=== PATIENT | male | born 1935 | race Caucasian/White ===

== ENCOUNTER → 2016-09-14 | Outpatient (CLI) | payer MEDICARE, OTHER | END | disposition home or self-care (01) | LOC: GMAB 11:01 | PROVIDERS: ATTEND Family Medicine | DX: I10 Essential (primary) hypertension (principal) ==

== ENCOUNTER → 2019-02-19 | Outpatient (CLI) | payer MEDICARE | LOC: GMAE 10:34 | PROVIDERS: ATTEND Family Medicine | DX: I10 Essential (primary) hypertension (principal) ==

== ENCOUNTER 2019-03-05 05:23 | Day surgery (SDC) | payer MEDICARE ==
[2019-03-05] MEDS ORDERED: LACTATED RINGERS 1,000 ML ONE (07:04)
[2019-03-05] MEDS: LACTATED RINGERS 1,000 ML IVS ONE (09:35)
[2019-03-05] MEDS ORDERED: LIDOCAINE 1% 10 ML VIAL INJ ONE (10:00)
[2019-03-05] MEDS ORDERED: PROPOFOL 200 MG/20 ML VIAL IV ONE (10:00)
[2019-03-05] MEDS ORDERED: LEVALBUTEROL NEBS 1.25 MG/3 ML VIAL NEB ONE ×2 (10:19→11:41)
--- NOTE | 2019-03-05 12:02 | OP ---
DATE OF PROCEDURE: 03/05/19 PREOPERATIVE DIAGNOSIS: 1. History of polyps. It has been over 12 years or so. POSTOPERATIVE DIAGNOSIS: 1. Colonic polyps. 2. Diverticulosis. PROCEDURE: 1. Colonoscopy. SURGEON: Ray Cueto MD ANESTHESIA: General. PROCEDURE: General anesthesia was induced in comfortable left lateral position. It was difficult to get to the sigmoid. We identified a polyp at about 3 cm. It was taken with a snare before we proceeded. We were able to finally get through and proceeded on to the cecum. There was an approximately 10 mm polyp in the cecum. We attempted to get through it and it did just not want to get through completely. I do not know that it looked too thick, but it was in the cecum. There were thin klein, so we did get a good, solar sales representative portion of it and took photos. Upon withdrawal, we identified another large polyp near the hepatic flexure. It was probably 12 to 13 mm at least. This was on a stalk and able to removed completely. Another 30 cm polyp was removed with a snare. It was about 8 mm. There were 3 additional polyps about 10 cm in the rectum varying between 4 and 7 mm that were excised with the snare. The one at 40 cm was taken with forceps biopsy additionally and cauterized at the base for minor ooze. Overall, he tolerated the procedure well. There were a number of polyps, so we will check pathology and he will followup in the office. #[id number] [facility]
[2019-03-05] MEDS: ONDANSETRON INJ 4 MG/2 ML VIAL ONE (12:20)
[2019-03-05 13:38] VITALS: BP 152/73; TEMP 98.6; O2SAT 99
== END 2019-03-05 13:10 | disposition home or self-care (01) ==
LOC: AMB 05:23
PROVIDERS: ATTEND Surgery
DX: Z12.11 Encounter for screening for malignant neoplasm of colon (principal); D12.0 Benign neoplasm of cecum; D12.3 Benign neoplasm of transverse colon; K63.5 Polyp of colon; K57.30 Diverticulosis of large intestine without perforation or abscess without bleeding; I10 Essential (primary) hypertension; Z88.2 Allergy status to sulfonamides; Z86.010 Personal history of colon polyps
CPT/HCPCS: 00812; 45380; 45385; 88305; 94640; J2405; J3490; J7120; J7614

== ENCOUNTER 2019-06-08 18:41 | Emergency (ER) | payer MEDICARE, OTHER ==
[2019-06-08] MEDS: ASPIRIN TABLET 325 MG TAB PO ONE (18:59)
[2019-06-08] MEDS: SODIUM CHLORIDE 0.9% (FLUSH) 10 ML SYG IV PRN (19:00)
--- NOTE | 2019-06-08 19:25 | CT ---
EXAM DESCRIPTION: Head CLINICAL HISTORY: 83 years Male right leg weakness r/o stroke. COMPARISON: None TECHNIQUE: Images were obtained in axial, sagittal, and coronal planes. This exam was performed according to our departmental dose-optimization program which includes use of Automated Exposure Control, adjustment of the mA and/or kV according to patient size and/or use of iterative reconstruction technique. FINDINGS: Ventricular system is enlarged. Marked prominence of the cortical sulci. Marked cerebral volume loss. Moderate periventricular decreased attenuation consistent with more remote microvascular ischemic change. No abnormal areas of increased attenuation seen. No extra-axial fluid collections noted. Marked mucosal thickening left maxillary antrum. Symmetric aeration mastoid air cells bilaterally. No evidence for skull fracture. IMPRESSION: No acute intracranial abnormality. No evidence for hemorrhage, mass lesion, or large acute infarction. Marked cerebral volume loss. Marked more remote microvascular ischemic change. Electronically signed by: May Das MD 06/08/2019 7:23 PM FILLER SPREADER
[2019-06-08] MEDS ORDERED: ALTEPLASE 100 MG ONE (19:39)
--- NOTE | 2019-06-08 19:55 | RAD ---
EXAM DESCRIPTION: XR Chest,1 View CLINICAL HISTORY: right leg weakness TECHNIQUE: Single frontal view of the chest is submitted. COMPARISON: None available for comparison FINDINGS: Heart: The cardiothoracic silhouette is within normal limits. Lungs: Patchy bilateral perihilar and basilar opacities. Mediastinum: Thoracic aortic atherosclerosis. Pleura: No appreciable effusion. No pneumothorax. Bones: Multilevel spondylosis. No acute fracture. Upper abdomen: Partially visualized abdominal aortic vascular stent. IMPRESSION: Patchy bilateral perihilar and basilar opacities (atelectasis and/or infiltrate). Electronically signed by: Bety Downey MD 06/08/2019 7:53 PM RETORT FORKER
[2019-06-08] MEDS: ALTEPLASE IVS ONE (20:03)
--- NOTE | 2019-06-08 20:05 | ED.PDOC ---
History of Present Illness - General Chief Complaint: Neuro Symptoms/Deficits Stated Complaint: R lower extremity weakness Time Seen by Provider: 06/08/19 18:41 Source: patient, RN notes reviewed, Vital Signs reviewed, family - and daughters Exam Limitations: no limitations - History of Present Illness Initial Comments: Patient is an 83-year-old white male who noted acute onset of right lower extremity weakness and numbness. This came on acutely approximately 1 to 1-1/4 hours prior to arrival. Patient denies any trauma. Nothing seems to make the numbness better or worse. Patient denies any confusion, expressive aphasia, receptive aphasia, headache or blurry vision. Timing/Duration: 1 hour - At approximately 1830 hrs. Severity: moderate Improving Factors: nothing Worsening Factors: nothing Associated Symptoms: weakness Allergies/Adverse Reactions: Allergies Sulfa Antibiotics Allergy (Mild, Verified 03/05/19 08:28) Rash Home Medications: Ambulatory Orders Amlodipine Besylate 10 mg PO DAILY 03/05/19 Atorvastatin Calcium 40 mg PO DAILY 03/05/19 Chlorthalidone 12.5 mg PO BEDTIME 03/05/19 Clopidogrel Bisulfate 75 mg PO DAILY 03/05/19 Folic Eleb-Stvkkqcsuc-Ddhxcbiw [Folbic 2.5-25-2 mg] 1 tab PO DAILY 03/05/19 Metoprolol Succinate [Metoprolol Succinate ER] 25 mg PO DAILY 03/05/19 Misc Natural Products [Saw [place] Plus] 1 cap PO DAILY 03/05/19 Ramipril 10 mg PO BID 03/05/19 Review of Systems - Review of Systems Constitutional: States: see HPI, weakness - Right lower extremity. Denies: chills, fever, malaise EENTM: States: no symptoms reported Respiratory: States: no symptoms reported Cardiology: States: no symptoms reported Gastrointestinal/Abdominal: States: no symptoms reported Genitourinary: States: no symptoms reported Musculoskeletal: States: no symptoms reported Skin: States: no symptoms reported Neurological: States: see HPI, paresthesia - Right lower extremity, weakness - Right lower extremity Endocrine: States: no symptoms reported Hematologic/Lymphatic: States: no symptoms reported All other Systems: Reviewed and Negative Past Medical History (General) - Patient Medical History Hx Stroke: No Hx Cardiac Disorders: Yes - [place]; cardiac stents; aneurysm Hx Congestive Heart Failure: No Hx Hypertension: Yes Hx Diabetes: No Hx MRSA: No Surgical History: other - Vaccination History Hx Influenza Vaccination: Yes - 2019 Hx Pneumococcal Vaccination: Yes - Social History Hx Tobacco Use: Yes Hx Alcohol Use: No Family Medical History - Family History Father Family History: No Known Living Status: Physical Exam - Physical Exam General Appearance: Alert, Comfortable, Well Developed, Well Groomed, Well Hydrated, Well Nourished Eye Exam: bilateral normal, bilateral abnormal EOM ENT Exam: normal ENT inspection, hearing grossly normal, pharynx normal Neck: non-tender, full range of motion, supple, normal inspection, trachea midline Respiratory: chest non-tender, lungs clear, normal breath sounds, no respiratory distress, no accessory muscle use Cardiovascular/Chest: normal peripheral pulses, regular rate, rhythm, no edema, no gallop, no JVD, no murmur Peripheral Pulses: radial,right: 2+, radial,left: 2+ Gastrointestinal/Abdominal: normal bowel sounds, non tender, soft, no organomegaly, no pulsatile mass Back Exam: normal inspection, no CVA tenderness, no vertebral tenderness Extremities Exam: non-tender, no evidence of injury, other - Right lower extremity with no effort against gravity.Mild paresthesias. Coordination/Gait: normal finger to nose, other - Patient is unable to stand to perform a Romberg procedure. He is unable to perform a vfzu-en-exip cerebellar exam due to extreme right lower extremity weakness. Motor/Sensory: sensory deficit - Right lower extremity, weak motor strength RLE DTR: 1+: Patellar, left, Patellar, right Skin Exam: normal color, warm/dry Progress - Progress Progress: Differential diagnosis: CVA, TIA, sciatica, lumbar fracture among others. 06/08/19 20:10 Patient with acute onset of right lower extremity weakness with an NIH stroke scale of 5. Discussed with family the risks and benefits of TPA. They voiced understanding and agreement with proceeding forward with treatment. They have been given informed consent and signed a consent form. Patient does not have any contraindications or relative contraindications for TPA. Plan on admission to [facility] in [place]. I have spoken with the family and the patient and they voiced understanding and agreement for transfer for further stroke care. I have discussed this with the stroke center and they have accepted the patient. The patient was accepted by Dr. Schuyler Dong M.D. #[id number] - Results/Orders Results/Orders: EXAM DESCRIPTION: Head CLINICAL HISTORY: 83 years Male right leg weakness r/o stroke. COMPARISON: None TECHNIQUE: Images were obtained in axial, sagittal, and coronal planes. This exam was performed according to our departmental dose-optimization program which includes use of Automated Exposure Control, adjustment of the mA and/or kV according to patient size and/or use of iterative reconstruction technique. FINDINGS: Ventricular system is enlarged. Marked prominence of the cortical sulci. Marked cerebral volume loss. Moderate periventricular decreased attenuation consistent with more remote microvascular ischemic change. No abnormal areas of increased attenuation seen. No extra-axial fluid collections noted. Marked mucosal thickening left maxillary antrum. Symmetric aeration mastoid air cells bilaterally. No evidence for skull fracture. IMPRESSION: No acute intracranial abnormality. No evidence for hemorrhage, mass lesion, or large acute infarction. Marked cerebral volume loss. Marked more remote microvascular ischemic change. Electronically signed by: May Das MD 06/08/2019 7:23 PM [employer]OUCH[employer]ENG[employer]VING 06/08/19 18:52 Sodium Chloride 0.9% (Flush) [Saline Flush Syringe] 10 ml IV PRN PRN 06/08/19 18:53 IV Care:Saline Lock per Protoc QSHIFT Telemetry .ONCE EKG Assessment ONCE 06/08/19 19:00 EKG STAT Laboratory Results - last 24 hr 06/08/19 06/08/19 06/08/19 18:56 18:56 18:56 WBC 11.6 H RBC 3.39 L Hgb 9.6 L Hct 29.6 L MCV 87.3 MCH 28.2 MCHC 32.3 L RDW 15.9 H Plt Count 231 MPV 7.6 Absolute Neuts (auto) 8.60 H Absolute Lymphs (auto) 1.60 Absolute Monos (auto) 1.20 H Absolute Eos (auto) 0.10 Absolute Basos (auto) 0.10 Neutrophils % 73.5 Lymphocytes % 14.1 L Monocytes % 10.6 H Eosinophils % 1.2 Basophils % 0.6 PT 12.1 H INR 1.22 H PTT (SP) 26.3 Sodium 136 Potassium 3.9 Chloride 103 Carbon Dioxide 23 Anion Gap 13.9 BUN 30 H Creatinine 1.37 H BUN/Creatinine Ratio 21.9 H POC Glucose Random Glucose 102 Serum Osmolality 278.3 Calcium 9.2 Total Bilirubin 0.5 AST 47 H ALT 40 Alkaline Phosphatase 190 H Creatine Kinase 65 CK-MB (CK-2) 2.2 CK-MB (CK-2) % Not Reportable Troponin I 0.03 Serum Total Protein 6.7 Albumin 3.3 Globulin 3.4 Albumin/Globulin Ratio 1.0 L 06/08/19 18:56 WBC RBC Hgb Hct MCV MCH MCHC RDW Plt Count MPV Absolute Neuts (auto) Absolute Lymphs (auto) Absolute Monos (auto) Absolute Eos (auto) Absolute Basos (auto) Neutrophils % Lymphocytes % Monocytes % Eosinophils % Basophils % PT INR PTT (SP) Sodium Potassium Chloride Carbon Dioxide Anion Gap BUN Creatinine BUN/Creatinine Ratio POC Glucose 97 Random Glucose Serum Osmolality Calcium Total Bilirubin AST ALT Alkaline Phosphatase Creatine Kinase CK-MB (CK-2) CK-MB (CK-2) % Troponin I Serum Total Protein Albumin Globulin Albumin/Globulin Ratio Stroke Information - Onset of Symptoms Symptoms of Stroke: Weakness of limb - Right lower extremity Stroke Onset of Symptoms Date: 06/08/19 Stroke Onset of Symptoms Time: 17:45 Departure - Departure Clinical Impression: Anemia, Renal insufficiency, mild CVA (cerebral vascular accident) Qualifiers: CVA mechanism: unspecified Qualified Code(s): I63.9 - Cerebral infarction, unspecified Time of Disposition: 20:16 Disposition: Transfer to Hospital Condition: Fair Referrals: CHADWICK VEGA MD [Primary Care Provider] - 1-2 Weeks Home Medications: Ambulatory Orders Amlodipine Besylate 10 mg PO DAILY 03/05/19 Atorvastatin Calcium 40 mg PO DAILY 03/05/19 Chlorthalidone 12.5 mg PO BEDTIME 03/05/19 Clopidogrel Bisulfate 75 mg PO DAILY 03/05/19 Folic Jqcv-Gjgqjbpmrr-Zrvgsntk [Folbic 2.5-25-2 mg] 1 tab PO DAILY 03/05/19 Metoprolol Succinate [Metoprolol Succinate ER] 25 mg PO DAILY 03/05/19 Misc Natural Products [Saw [place] Plus] 1 cap PO DAILY 03/05/19 Ramipril 10 mg PO BID 03/05/19 Critical Care Note - Critical Care Note Total Time (mins): 45 Transfer to Outside Facility - Transfer Information Decision to Transfer Date: 06/08/19 Decision to Transfer Time: 19:30 Reason for Transfer: specialized care not available Accepting Facility: [facility]
[2019-06-08 20:49] VITALS: BP 115/63; TEMP 97.7
[2019-06-09 02:15] VITALS: O2SAT 95
== END 2019-06-08 20:30 | disposition short-term general hospital (02) ==
LOC: ER 18:41
DX: I63.9 Cerebral infarction, unspecified (principal); D64.9 Anemia, unspecified; N28.9 Disorder of kidney and ureter, unspecified; R20.0 Anesthesia of skin; R29.898 Other symptoms and signs involving the musculoskeletal system; I25.2 Old myocardial infarction; I10 Essential (primary) hypertension; Z87.891 Personal history of nicotine dependence; Z95.5 Presence of coronary angioplasty implant and graft; Z79.899 Other long term (current) drug therapy; Z88.2 Allergy status to sulfonamides
CPT/HCPCS: 36415; 70450; 71045; 80053; 82550; 82553; 82948; 84484; 85025; 85610; 85730; 93005; J2997

== ENCOUNTER 2019-06-12 12:35 | Emergency (ER) | payer OTHER ==
[2019-06-12] MEDS ORDERED: SODIUM CHLORIDE 0.9% (FLUSH) 10 ML SYG IV PRN (12:40)
--- NOTE | 2019-06-12 13:01 | CT ---
EXAM DESCRIPTION: CT head without contrast CLINICAL HISTORY: Stroke. Weakness COMPARISON: 06/08/2019 TECHNIQUE: Noncontrast spiral CT of the brain. This exam was performed according to our departmental dose-optimization program, which includes automated exposure control, adjustment of the mA and/or kV according to patient size and/or use of iterative reconstruction technique FINDINGS: Interval development of large perisylvian right parietotemporal occipital infarct. Sulcal effacement and decreased density with the most significant involvement temporal occipital. This spans from the anterior temporal lobe to the mid occipital lobe. No intracranial hemorrhage or mass lesion. Extensive white matter disease related to chronic microvascular ischemia Cerebral and cerebellar volume loss with prominence of cortical sulci and ventricular system. Atherosclerotic vertebral and internal carotid arteries. Atherosclerotic calcification in the bilateral M1 middle cerebral arteries as well. No calvarial or skull base lesion or fracture. No paranasal sinus or mastoid fluid. 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 Swelling with effacement of the sulci Severe chronic microvascular ischemia Electronically signed by: Vickey Dunn MD 06/12/2019 1:00 PM [facility]
[2019-06-12] MEDS ORDERED: ASPIRIN (CHEWABLE) 81 MG TAB PO ONE (13:08)
[2019-06-12] MEDS ORDERED: CLOPIDOGREL 75 MG TAB PO ONE (13:09)
[2019-06-12] MEDS ORDERED: ALTEPLASE 100 MG ONE (13:14)
--- NOTE | 2019-06-12 13:15 | ED.PDOC ---
History of Present Illness - General Chief Complaint: Neuro Symptoms/Deficits Stated Complaint: Possible stroke Time Seen by Provider: 06/12/19 12:40 Source: family Exam Limitations: clinical condition - History of Present Illness Initial Comments: PT HAD A RECENT STROKE. HE WAS D/C'D YESTERDAY FROM [facility] FOR STROKE CARE. TODAY PT WAS RIDING IN CAR WITH SON. PER SON, PT'S HEAD FLEXED BACKWARD, EYES "ROLLED INTO THE BACK OF HIS HEAD", AND PT PROJECTILE VOMITED. BROUGHT TO ER. IN ER, PT WAS NOT COMMANDING AND HAD NO MUSCULAR STRENGTH. STAFF HAD TO COMPL ETELY TRANSFER FROM WHEELCHAIR TO BED. (INITIAL NIH STROKE SCORE 28). AFTER A SHORT WHILE IN ER BUT AFTER HEAD CT, HE WAS THEN FULLY LUCID WITH GCS 15 (NIH STROKE SCORE BACK TO NL), FULLY COMMANDING, AND MOTOR BACK TO 100%. ROS AND EXAM ARE BASED ON AFTER HIS FULL RECOVERY. Timing/Duration: 1 hour Severity: severe Improving Factors: nothing Worsening Factors: nothing Associated Symptoms: confusion, nausea/vomiting, weakness Allergies/Adverse Reactions: Allergies Sulfa Antibiotics Allergy (Mild, Verified 03/05/19 08:28) Rash Home Medications: Ambulatory Orders Amlodipine Besylate 10 mg PO DAILY 03/05/19 Atorvastatin Calcium 40 mg PO DAILY 03/05/19 Chlorthalidone 12.5 mg PO BEDTIME 03/05/19 Clopidogrel Bisulfate 75 mg PO DAILY 03/05/19 Folic Syks-Xhqpyrjxtt-Hnsmogju [Folbic 2.5-25-2 mg] 1 tab PO DAILY 03/05/19 Metoprolol Succinate [Metoprolol Succinate ER] 25 mg PO DAILY 03/05/19 Misc Natural Products [Saw [place] Plus] 1 cap PO DAILY 03/05/19 Ramipril 10 mg PO BID 03/05/19 Review of Systems - Review of Systems Constitutional: Denies: chills, fever EENTM: Denies: blurred vision, nose congestion Respiratory: Denies: cough, short of breath Cardiology: Denies: chest pain, palpitations Gastrointestinal/Abdominal: Denies: abdominal pain, nausea Genitourinary: Denies: dysuria, frequency Musculoskeletal: Denies: back pain, neck pain Skin: Denies: lesions, rash Neurological: Denies: headache, numbness, paresthesia, tingling, tremors Endocrine: Denies: increased thirst, unexplained weight loss Hematologic/Lymphatic: Denies: easy bleeding, easy bruising All other Systems: Reviewed and Negative Past Medical History (General) - Patient Medical History Hx Stroke: Yes - TIA's Hx Cardiac Disorders: Yes - [place]; cardiac stents; aneurysm Hx Congestive Heart Failure: No Hx Hypertension: Yes Hx Diabetes: No Hx MRSA: No - Vaccination History Hx Influenza Vaccination: Yes - 2019 Hx Pneumococcal Vaccination: Yes - Social History Hx Tobacco Use: Yes Hx Alcohol Use: No Family Medical History - Family History Father Family History: No Known Living Status: Physical Exam - Physical Exam General Appearance: Alert, No apparent distress Eye Exam: bilateral normal ENT Exam: normal ENT inspection, hearing grossly normal, TMs normal, pharynx normal Neck: non-tender, full range of motion, supple, normal inspection, trachea midline Respiratory: chest non-tender, lungs clear, normal breath sounds, no respiratory distress, no accessory muscle use Cardiovascular/Chest: normal peripheral pulses, regular rate, rhythm, no edema, no gallop, no JVD, no murmur Peripheral Pulses: radial,right: 2+, radial,left: 2+, dorsalis pedis,right: 1+, dorsalis pedis,left: 1+, posterior tibialis,right: 1+, posterior tibialis,left: 1+ Gastrointestinal/Abdominal: normal bowel sounds, non tender, soft, no organomegaly, no pulsatile mass Back Exam: normal inspection, no CVA tenderness, no vertebral tenderness Extremities Exam: non-tender, normal range of motion, no evidence of injury, no edema Mental Status: alert, oriented x 3 consulting technical manager Exam: other - CN 2-12 IN TACT Coordination/Gait: normal finger to nose, normal gait, negative Romberg's sign Motor/Sensory: no motor deficit, no sensory deficit, no pronator drift, negative Babinski's sign DTR: 3+: Achilles, left, Achilles, right Skin Exam: normal color, warm/dry Progress - Results/Orders Results/Orders: UPON ER ADMISSION - SUSPECTED STROKE UPON ER DISCHARGE - SEIZURE, S/P RECENT STROKE. CT HEAD - ISCHEMIC STROKE, R PARIETO-OCCIPITAL. CXR ATELECTASIS (NO CLINICAL S/SX OF PNE). EKG NSR CARD ENZ - TROP 0.78 AND ELEV CKMB. CBC - HGB 8.7. CMP - ELEV ALK PHOS. COAGS - NO CONCERNS. UPON PRESENTATION TO ER, PT WAS NOT COMMANDING AND HAD NO MUSCULAR STRENGTH. STAFF HAD TO COMPLETELY TRANSFER FROM WHEELCHAIR TO BED. (INITIAL NIH STROKE SCORE 28). THUS, GREAT CONCERN FOR REPEAT STROKE. 13:10 CT SHOWED ISCHEMIC STROKE, THUS BEGAN STARTING STROKE PROTOCOL. I GAVE ASA 325 AND PLAVIX 75 MG PO X 1. CONTRAINDICATION TO THROMBOLYTICS WAS NOTED PER ACTIVASE TPA LIST: PT HAS H/O STROKE WITHIN PAST 3 MONTHS. I AM CALLING [facility] RIGHT NOW TO CONSULT, SINCE HE WAS DISCHARGED YESTERDAY FOR STROKE FROM THERE. THEN AT THIS POINT, I RE-EXAMINED THE PATIENT. HE WAS NOW FULLY LUCID WITH GCS 15 (NIH STROKE SCORE BACK TO NL), FULLY COMMANDING, AND MOTOR BACK TO 100%. TROPONIN NOTED TO BE 0.78 BUT NO CHEST PAIN AND EKG NSR. DUE TO THE UNUSUAL NATURE OF FINDINGS ON CT YET COMPLETE RESOLUTION OF STROKE SX, I CALLED TO CONSULT WITH NEUROLOGIST AT [facility], DR. BAER ([facility]). HE MENTIONED IT IS LIKELY THE OLD INFARCT/STROKE APPEARING ON THE CT AND EVEN IF IT IS A NEW STROKE, WE WOULD NOT GIVE TPA THROMBOLYTICS DUE TO RECENT LYTICS FOR HIS RECENT STROKE. HE MENTIONED IT IS LIKELY A SEIZURE WHICH IS COMMON AFTER STROKE, AND HE RECOMMENDED WE TRANSFER THE PATIENT TO THEM VIA THE ER TRANSFER CENTER FOR FURTHER CARE. THUS, I THEN SPOKE WITH DR. HINTON IN THE [facility] ER WHO GRACIOUSLY ACCEPTED TRANSFER. SINCE NO HEMORRHAGIC STROKE, HIS MILD HYPOTENSION WAS CORRECTED WITH IVF. PT WAS STABLE FOR TRANSFER AND WAS TRANSFERRED VIA AMBULANCE. THANK YOU, DR. HINTON AND [facility], FOR ACCEPTING FURTHER CARE OF OUR PATIENT. Stroke Information - Onset of Symptoms Symptoms of Stroke: Aphasia, Difficulty balancing Stroke Onset of Symptoms Date: 06/12/19 - Contraindications t-PA Contraindication: Medical Contraindication - H/O STROKE AND TPA WITHIN PAST 3 MONTHS. Departure - Departure Clinical Impression: Seizure as late effect of cerebrovascular accident (CVA), History of stroke, Troponin level elevated Anemia Qualifiers: Anemia type: unspecified type Qualified Code(s): D64.9 - Anemia, unspecified Hypotension Qualifiers: Hypotension type: unspecified hypotension type Qualified Code(s): I95.9 - Hypotension, unspecified Disposition: Transfer to Hospital Condition: Fair Departure Forms: ED Discharge - Pt. Copy, Patient Portal Self Enrollment Referrals: CHADWICK VEGA MD [Primary Care Provider] - 1-2 Weeks Home Medications: Ambulatory Orders Amlodipine Besylate 10 mg PO DAILY 03/05/19 Atorvastatin Calcium 40 mg PO DAILY 03/05/19 Chlorthalidone 12.5 mg PO BEDTIME 03/05/19 Clopidogrel Bisulfate 75 mg PO DAILY 03/05/19 Folic Fzjk-Mgeojisrvw-Qwsgnsbh [Folbic 2.5-25-2 mg] 1 tab PO DAILY 03/05/19 Metoprolol Succinate [Metoprolol Succinate ER] 25 mg PO DAILY 03/05/19 Misc Natural Products [Saw [place] Plus] 1 cap PO DAILY 03/05/19 Ramipril 10 mg PO BID 03/05/19 Transfer to Outside Facility - Transfer Information Decision to Transfer Date: 06/12/19 Decision to Transfer Time: 13:15 Reason for Transfer: specialized care not available Accepting Provider:: DR. HINTON, ER Accepting Facility: [facility]
--- NOTE | 2019-06-12 13:29 | RAD ---
Study: Single Frontal Radiograph of the Chest. Indication:RECENT HOSP. FOR STROKE. STROKE-LIKE SX TODAY. Comparison: June 08, 2019 Impression: Cardiomegaly without failure. Persistent patchy bibasilar atelectasis versus consolidation. Follow-up to resolution recommended. No pleural effusion or pneumothorax. Osteopenia. If this is a new finding, DEXA scan recommended as well as evaluation for possible osteoporosis treatment. Electronically signed by: Mikey Warner MD 06/12/2019 1:27 PM CENTRAL SUPPLY ASSISTANT
[2019-06-12 13:35] VITALS: O2SAT 91
[2019-06-12] MEDS ORDERED: SODIUM CHLORIDE 0.9% 1000ML 1,000 ML IVS ONE (14:05)
[2019-06-12 15:28] VITALS: BP 113/65; TEMP 97
== END 2019-06-12 14:38 | disposition short-term general hospital (02) ==
LOC: ER 12:35
DX: I69.398 Other sequelae of cerebral infarction (principal); R56.9 Unspecified convulsions; R79.89 Other specified abnormal findings of blood chemistry; D64.9 Anemia, unspecified; I95.9 Hypotension, unspecified; R11.2 Nausea with vomiting, unspecified; I25.2 Old myocardial infarction; I10 Essential (primary) hypertension; Z95.5 Presence of coronary angioplasty implant and graft; Z87.891 Personal history of nicotine dependence; Z79.899 Other long term (current) drug therapy; Z88.2 Allergy status to sulfonamides
CPT/HCPCS: 36415; 36416; 70450; 71045; 80053; 82550; 82553; 82948; 84484; 85025; 85610; 85730; 93005; J2997; J7030